=== PATIENT | male | born 1960 | race Two or more races ===

== ENCOUNTER 2020-02-02 11:44 | Inpatient (IN) | payer BC ==
[2020-02-02] VITALS (8 sets, daily range): BP systolic 98–131; BP diastolic 57–89
[~2020-02-02] VITALS: Ht 172.7 cm; Wt 76.7 kg
--- NOTE | 2020-02-02 11:55 | NUR ---
ED Nurse Note: Patient PATRICIA after calling 911. Patient suddenly felt very weak and diaphoretic at home out of nowhere, felt a pressure in his chest, and electricity in all of his extremities. Patient states he was waiting for the feeling to pass, but slowly felt worse and worse and passed out after vomiting in his bathroom at home. Patient currently unable to communicate in long sentences, looks extremely fatigued and pale. Patient had a non-sustained run of V-Tach on the monitoring analyst, which converted to A-Fib. Patient AxO x 2, laying in the gurney with eyes closed, diaphoretic. VSS. Blood and urine collected and sent to lab.
[2020-02-02 11:57] LABS: HEMATOCRIT 44.1 % (42.0-52.0); HEMOGLOBIN 15.7 G/DL (14.2-18.0); MEAN CORPUSCULAR VOLUME 91 FL (80-99); PLATELET COUNT 154 K/UL (150-450); RED BLOOD COUNT 4.85 M/UL (4.70-6.10); RED CELL DISTRIBUTION WIDTH 10.7 % (11.6-14.8); WHITE BLOOD COUNT 9.8 K/UL (4.8-10.8)
--- NOTE | 2020-02-02 12:23 | Emergency Room Report ---
History of Present Illness General Chief Complaint: Syncope Source: EMS Present Illness HPI Disclaimer: Please note that this report is being documented using DRAGON technology. This can lead to erroneous entry secondary to incorrect interpretation by the dictating instrument. HPI: This is a 60-year-old male presenting for syncope. Unknown medical history. EMS was called to the house for vomiting. They had to break into his home and found him on the ground though he was awake. He has been complaining of vomiting unknown duration. Patient is lethargic does not provide much significant information. EMS rhythm strips on arrival showed sinus rhythm. While he was being transferred and put on monitor in the ED room he had a 40 beat episode of nonsustained ventricular tachycardia. He was awake during this time. EKG after this event showed atrial fibrillation with diffuse ST depressions. PMH: Unknown PSH: Unknown Allergies: Unknown Social Hx: Unknown Allergies: Coded Allergies: No Known Allergies (Unverified , 02/02/20) COVID-19 Screening Contact w/high risk pt: No Recent Travel to affected area: No Experienced COVID-19 symptoms?: No COVID-19 symptoms experienced: Fever (T>100.4F or >38C) Review of Systems All Other Systems: negative except mentioned in HPI Physical Exam Vital Signs Date Time Temp Pulse Resp B/P (MAP) Pulse Ox O2 Delivery O2 Flow Rate FiO2 02/02/20 11:47 97.0 106 14 131/78 (95) 99 Room Air General: Lethargic HEENT: NC/AT. EOMI. Cardiovascular: Tachycardic, irregularly irregular rhythm Resp: Mild tachypnea. Normal work of breathing Abdomen: Abdomen is soft, nondistended. Nontender Skin: Intact. No abrasions, laceration or rash over the exposed skin MSK: Normal tone and bulk. Moving all extremities. No obvious deformity. Neuro: Lethargic. Responds to painful stimuli Procedures Critical Care Time Critical Care Time Total critical care time: Approximately 45 minutes Due to a high probability of clinically significant, life threatening deterioration, the patient required the highest level of preparedness to intervene emergently and I personally spent this critical care time directly and personally managing the patient. This critical care time included obtaining a history, examining the patient, pulse oximetry, ordering and reviewing studies , ordering treatments, evaluating response to treatment and updating management plan as needed, frequent reassessment and discussion with other providers as well as arranging for ultimate disposition. This critical to care time was performed to assess and manage the high probability of life-threatening deterioration that could result in multiorgan failure. This critical care time is separate from the separately billable procedures and treating other patients. Medical Decision Making Diagnostic Impression: Primary Impression: Syncope Additional Impressions: Ventricular tachycardia Prolonged Q-T interval on ECG ER Course This a 60-year-old male presenting for evaluation after syncopal episode. He was found on the ground by EMS and on arrival had a nonsustained ventricular tachycardic episode. He is lethargic but arousable. EKG shows atrial fibrillation with a left axis and diffuse ST depression concerning for inferior lateral ischemia. His QTC is significant prolonged at 567 ms. Patient has not been to our facility before however outside records from [facility] were obtained. 4 years ago he was taking digoxin, Coumadin and beta-blockers presumably for atrial fibrillation. Will send digoxin level, broad labs including blood cultures, lactate, coagulation markers. Discussed with cardiology will have the patient admitted to the ICU. No interventions recommended at this time. Defibrillator pads placed on patient. Will monitor closely. Laboratory Tests Test 02/02/20 11:47 02/02/20 12:00 White Blood Count 9.8 K/UL (4.8-10.8) Red Blood Count 4.85 M/UL (4.70-6.10) Hemoglobin 15.7 G/DL (14.2-18.0) Hematocrit 44.1 % (42.0-52.0) Mean Corpuscular Volume 91 FL (80-99) Mean Corpuscular Hemoglobin 32.5 PG (27.0-31.0) H Mean Corpuscular Hemoglobin Concent 35.7 G/DL (32.0-36.0) Red Cell Distribution Width 10.7 % (11.6-14.8) L Platelet Count 154 K/UL (150-450) Mean Platelet Volume 8.2 FL (6.5-10.1) Neutrophils (%) (Auto) % (45.0-75.0) Lymphocytes (%) (Auto) % (20.0-45.0) Monocytes (%) (Auto) % (1.0-10.0) Eosinophils (%) (Auto) % (0.0-3.0) Basophils (%) (Auto) % (0.0-2.0) Differential Total Cells Counted 100 Neutrophils % (Manual) 47 % (45-75) Lymphocytes % (Manual) 44 % (20-45) Monocytes % (Manual) 4 % (1-10) Eosinophils % (Manual) 3 % (0-3) Basophils % (Manual) 0 % (0-2) Band Neutrophils 2 % (0-8) Platelet Estimate Adequate Platelet Morphology Normal Red Blood Cell Morphology Normal Prothrombin Time 10.6 SEC (9.30-11.50) Prothrombin Time INR 1.0 (0.9-1.1) Activated Partial Thromboplast Time 23 SEC (23-33) Sodium Level 143 MMOL/L (136-145) Potassium Level 3.0 MMOL/L (3.5-5.1) L Chloride Level 103 MMOL/L (98-107) Carbon Dioxide Level 22 MMOL/L (21-32) Anion Gap 18 mmol/L (5-15) H Blood Urea Nitrogen 28 mg/dL (7-18) H Creatinine 1.1 MG/DL (0.55-1.30) Estimated Glomerular Filtration Rate > 60 mL/min (>60) Glucose Level 172 MG/DL (74-106) H Lactic Acid Level 4.90 mmol/L (0.4-2.0) H Calcium Level 9.3 MG/DL (8.5-10.1) Phosphorus Level 3.1 MG/DL (2.5-4.9) Magnesium Level 1.9 MG/DL (1.8-2.4) Total Bilirubin 0.7 MG/DL (0.2-1.0) Aspartate Amino Transferase (AST) 21 U/L (15-37) Alanine Aminotransferase (ALT) 28 U/L (12-78) Alkaline Phosphatase 71 U/L (46-116) Total Creatine Kinase 102 U/L (26-308) Troponin I 0.000 ng/mL (0.000-0.056) Pro-B-Type Natriuretic Peptide 92 pg/mL (0-125) Total Protein 7.3 G/DL (6.4-8.2) Albumin 4.1 G/DL (3.4-5.0) Globulin 3.2 g/dL Albumin/Globulin Ratio 1.3 (1.0-2.7) Lipase 108 U/L (73-393) Digoxin Level < 0.2 NG/ML (0.5-2.0) L Serum Alcohol < 3 mg/dL Urine Color Yellow Urine Appearance Clear Urine pH 5 (4.5-8.0) Urine Specific [place] 1.025 (1.005-1.035) Urine Protein 2+ (NEGATIVE) H Urine Glucose (UA) Negative (NEGATIVE) Urine Ketones 3+ (NEGATIVE) H Urine Blood Negative (NEGATIVE) Urine Nitrite Negative (NEGATIVE) Urine Bilirubin Negative (NEGATIVE) Urine Urobilinogen Normal MG/DL (0.0-1.0) Urine Leukocyte Esterase Negative (NEGATIVE) Urine RBC 0 /HPF (0 - 0) Urine WBC 0 /HPF (0 - 0) Urine Squamous Epithelial Cells None /LPF (NONE/OCC) Urine Amorphous Sediment Few /LPF (NONE) H Urine Bacteria None /HPF (NONE) Urine Opiates Screen Negative (NEGATIVE) Urine Barbiturates Screen Negative (NEGATIVE) Phencyclidine (PCP) Screen Negative (NEGATIVE) Urine Amphetamines Screen Negative (NEGATIVE) Urine Benzodiazepines Screen Negative (NEGATIVE) Urine Cocaine Screen Negative (NEGATIVE) Urine Marijuana (THC) Screen Negative (NEGATIVE) EKG Diagnostic Results EKG Time: 11:52 Rate: tachycardiac Rhythm: other - Atrial fibrillation Other Impression Atrial fibrillation, rapid rate, left axis, diffuse ST depression Rhythm Strip Diag. Results Rhythm Strip Time: 11:52 EP Interpretation: yes Rate: 110s Rhythm: other - Atrial fibrillation Chest X-Ray Diagnostic Results Chest X-Ray Diagnostic Results : Chest X-Ray Ordered: Yes # of Views/Limited/Complete: 1 View Indication: Other - Syncope EP Interpretation: Yes Interpretation: no consolidation, no effusion, no pneumothorax, no acute cardiopulmonary disease Impression: No acute disease Electronically Signed by: Electronically signed by Dr. Daniele Drake Reevaluation Time: 14:31 Last Vital Signs Date Time Temp Pulse Resp B/P (MAP) Pulse Ox O2 Delivery O2 Flow Rate FiO2 02/02/20 11:47 97.0 106 14 131/78 (95) 99 Room Air Reevaluation Impression Labs showed unremarkable CBC, slight hypokalemia with a potassium of 3.0. Slight anion gap and BUN elevation but normal creatinine at 1.1. Lactate elevated at 4.9. Troponin 0. Digoxin level undetectable and remainder of talk screen negative as well. No evidence of infection on urinalysis. Patient is now awake and alert. He states that he was suddenly severely fatigued, dizzy and then became drenched in sweat and had an episode of vomiting. Unsure whether or not he lost consciousness. He is now feeling much better and denies chest pain. He states he had an ablation for atrial fibrillation 2 years ago no longer takes medications. He has been feeling well up until today and denies any recent fever, chills, cough, chest pain, palpitations or other changes in his health. He remains on cardiac care nurse with defib pads applied. Will admit to the ICU for further care. Admitted to panel physician. Cardiology has evaluated patient and will continue to follow. Disposition: ADMITTED INPATIENT Condition: Serious Daniele Drake MD Feb 02, 2020 12:23
[2020-02-02 12:34] LABS: APPEARANCE,URINE CLEAR; BILIRUBIN, URINE NEGATIVE (NEGATIVE); GLUCOSE, URINE (UA) NEGATIVE (NEGATIVE); KETONES,URINE 3+ (NEGATIVE); LEUKOCYTE ESTERASE ,URINE NEGATIVE (NEGATIVE); NITRITE,URINE NEGATIVE (NEGATIVE); PH,URINE 5 (4.5-8.0); PROTEIN,URINE 2+ (NEGATIVE); UROBILINOGEN,URINE NORMAL MG/DL (0.0-1.0)
[2020-02-02 12:39] LABS: COLOR,URINE YELLOW
[2020-02-02 12:41] LABS: ANION GAP 18 mmol/L (5-15); BLOOD UREA NITROGEN 28 mg/dL (7-18); CALCIUM 9.3 MG/DL (8.5-10.1); CARBON DIOXIDE 22 MMOL/L (21-32); CHLORIDE 103 MMOL/L (98-107); CREATININE 1.1 MG/DL (0.55-1.30); SODIUM 143 MMOL/L (136-145)
[2020-02-02 12:45] LABS: ALANINE AMINOTRANSFERASE 28 U/L (12-78); ALBUMIN 4.1 G/DL (3.4-5.0); ALBUMIN/GLOBULIN RATIO 1.3 (1.0-2.7); ALKALINE PHOSPHATASE 71 U/L (46-116); ASPARTATE AMINO TRANSFERASE 21 U/L (15-37); BILIRUBIN,TOTAL 0.7 MG/DL (0.2-1.0)
--- NOTE | 2020-02-02 12:49 | NUR ---
ED Nurse Note: RYAN YEPEZ) -
[2020-02-02 13:14] LABS: CREATINE KINASE 102 U/L (26-308); PHOSPHORUS 3.1 MG/DL (2.5-4.9)
--- NOTE | 2020-02-02 13:51 | Diagnostic Imaging Report ---
Indication: Shortness of breath Technique: One view of the chest Comparison: none Findings: Lungs and pleural spaces are clear. Heart size is normal. Impression: No acute process
--- NOTE | 2020-02-02 15:50 | Diagnostic Imaging Report ---
Indication: Abdominal pain Technique: Supine view of the abdomen Comparison: None Findings: Unremarkable bowel gas pattern. No unusual masses or calcifications. Defibrillator paddles overlie the lower chest Impression: No acute process
--- NOTE | 2020-02-02 16:49 | NUR ---
ED Nurse Note: Patient resting in bed comfortably, AxO x 4, able to communicate without restriction and in full sentences. front desk monitor showing A-Fib between 118 and 130, patient denies shortness of breath and fatigue. Patient feeling much better.
--- NOTE | 2020-02-02 17:51 | Consultation ---
Consult Note Consult Note Asked to evaluate the patient at the request of Dr. Singh for fluid and electrolyte management Chief Complaint: Syncope HPI: This is a 60-year-old male presenting for syncope. Unknown medical history. EMS was called to the house for vomiting. They had to break into his home and found him on the ground though he was awake. He has been complaining of vomiting unknown duration. Patient is lethargic does not provide much significant information. EMS rhythm strips on arrival showed sinus rhythm. While he was being transferred and put on monitor in the ED room he had a 40 beat episode of nonsustained ventricular tachycardia. He was awake during this time. EKG after this event showed atrial fibrillation with diffuse ST depressions. PMH: Unknown PSH: Unknown Allergies: Unknown Social Hx: Unknown COVID-19 Screening Contact w/high risk pt: No Recent Travel to affected area: No Experienced COVID-19 symptoms?: No COVID-19 symptoms experienced: Fever (T>100.4F or >38C) Assessment/Plan Syncope Cardiac arrhythmia Dehydration Hypokalemia N.p.o. Potassium IV IV fluid Monitor electrolytes Per cardiology Helio Bryson MD Feb 02, 2020 17:51
--- NOTE | 2020-02-02 19:07 | NUR ---
ED Nurse Note: Report rendered by Candice Sin with com input from Kedar Sin. Patient is resting while on the phone and has no s/s of acute distress. Will contiue to monitor patient and receiving coordinator closely.
--- NOTE | 2020-02-02 19:27 | NUR ---
ED Nurse Note: First round of IV KCL hung post schedule. Will continue to monitor.
[2020-02-02] MEDS: D5 1/2NS w/KCl 40meq 1000ml 1,000 ML IV SCH (19:42)
--- NOTE | 2020-02-02 20:35 | NUR ---
ED Nurse Note: Patient resting comfortably, vital signs being closely monitored. Will continue to monitor for report and transport to the ICU floor. Receiving nurse to returnc all shortly for report.
--- NOTE | 2020-02-02 20:45 | NUR ---
ED Nurse Note: Report called in to Osvaldo JACOBO.
--- NOTE | 2020-02-02 21:07 | NUR ---
ED Nurse Note: Patient transported to floor by two RN's without incident.
--- NOTE | 2020-02-02 21:08 | NUR ---
NURSE NOTES: Admitted 60 year old male from Emergency Department. Endorsement received from DONNELL Ramírez. Patient awake and alert. Oriented x4. Sinus rhythm on the monitor. No complains of pain, no shortness of breath. With right forearm g18 and left forearm g20. Receiving D5 1/2NS with 40meq KCl at 50ml/hr. As per endorsement 1 bag of 3 bags of KCl 10 meq already given in ER. Will still need to give 2 more bags. Skin is intact. Orientation to room, call light, staff done. Bed locked and in low position. Bed alarm on. Call light within reach. Educated patient on how to use call light and to not to get up from the bed unassisted. Patient verbalized understanding.
--- NOTE | 2020-02-02 21:15 | NUR ---
NURSE NOTES: As per the patient, he did not fall. He felt dizzy so he laid on the floor and called 911.
--- NOTE | 2020-02-02 21:29 | Cardiac Electrophysiology PN ---
Subjective Subjective [id number] Objective Last 24 Hour Vital Signs Date Time Temp Pulse Resp B/P (MAP) Pulse Ox O2 Delivery O2 Flow Rate FiO2 02/02/20 21:08 97.1 68 15 114/58 100 Room Air 02/02/20 20:15 97.1 68 15 114/58 100 Room Air 02/02/20 19:30 97.1 71 13 103/62 100 Room Air 02/02/20 15:00 97.1 109 18 105/75 99 Room Air 02/02/20 13:00 97.2 107 18 112/69 98 Room Air 02/02/20 11:55 97.0 106 18 131/78 99 Room Air 02/02/20 11:47 97.0 106 14 131/78 (95) 99 Room Air Laboratory Tests Test 02/02/20 11:47 02/02/20 12:00 02/02/20 14:50 White Blood Count 9.8 K/UL (4.8-10.8) Red Blood Count 4.85 M/UL (4.70-6.10) Hemoglobin 15.7 G/DL (14.2-18.0) Hematocrit 44.1 % (42.0-52.0) Mean Corpuscular Volume 91 FL (80-99) Mean Corpuscular Hemoglobin 32.5 PG (27.0-31.0) H Mean Corpuscular Hemoglobin Concent 35.7 G/DL (32.0-36.0) Red Cell Distribution Width 10.7 % (11.6-14.8) L Platelet Count 154 K/UL (150-450) Mean Platelet Volume 8.2 FL (6.5-10.1) Neutrophils (%) (Auto) % (45.0-75.0) Lymphocytes (%) (Auto) % (20.0-45.0) Monocytes (%) (Auto) % (1.0-10.0) Eosinophils (%) (Auto) % (0.0-3.0) Basophils (%) (Auto) % (0.0-2.0) Differential Total Cells Counted 100 Neutrophils % (Manual) 47 % (45-75) Lymphocytes % (Manual) 44 % (20-45) Monocytes % (Manual) 4 % (1-10) Eosinophils % (Manual) 3 % (0-3) Basophils % (Manual) 0 % (0-2) Band Neutrophils 2 % (0-8) Platelet Estimate Adequate Platelet Morphology Normal Red Blood Cell Morphology Normal Prothrombin Time 10.6 SEC (9.30-11.50) Prothromb Time International Ratio 1.0 (0.9-1.1) Activated Partial Thromboplast Time 23 SEC (23-33) Sodium Level 143 MMOL/L (136-145) Potassium Level 3.0 MMOL/L (3.5-5.1) L Chloride Level 103 MMOL/L (98-107) Carbon Dioxide Level 22 MMOL/L (21-32) Anion Gap 18 mmol/L (5-15) H Blood Urea Nitrogen 28 mg/dL (7-18) H Creatinine 1.1 MG/DL (0.55-1.30) Estimat Glomerular Filtration Rate > 60 mL/min (>60) Glucose Level 172 MG/DL (74-106) H Lactic Acid Level 4.90 mmol/L (0.4-2.0) H 4.40 mmol/L (0.66-2.22) H Calcium Level 9.3 MG/DL (8.5-10.1) Phosphorus Level 3.1 MG/DL (2.5-4.9) Magnesium Level 1.9 MG/DL (1.8-2.4) Total Bilirubin 0.7 MG/DL (0.2-1.0) Aspartate Amino Transf (AST/SGOT) 21 U/L (15-37) Alanine Aminotransferase (ALT/SGPT) 28 U/L (12-78) Alkaline Phosphatase 71 U/L (46-116) Total Creatine Kinase 102 U/L (26-308) Troponin I 0.000 ng/mL (0.000-0.056) Pro-B-Type Natriuretic Peptide 92 pg/mL (0-125) Total Protein 7.3 G/DL (6.4-8.2) Albumin 4.1 G/DL (3.4-5.0) Globulin 3.2 g/dL Albumin/Globulin Ratio 1.3 (1.0-2.7) Lipase 108 U/L (73-393) Digoxin Level < 0.2 NG/ML (0.5-2.0) L Serum Alcohol < 3 mg/dL Urine Color Yellow Urine Appearance Clear Urine pH 5 (4.5-8.0) Urine Specific [place] 1.025 (1.005-1.035) Urine Protein 2+ (NEGATIVE) H Urine Glucose (UA) Negative (NEGATIVE) Urine Ketones 3+ (NEGATIVE) H Urine Blood Negative (NEGATIVE) Urine Nitrite Negative (NEGATIVE) Urine Bilirubin Negative (NEGATIVE) Urine Urobilinogen Normal MG/DL (0.0-1.0) Urine Leukocyte Esterase Negative (NEGATIVE) Urine RBC 0 /HPF (0 - 0) Urine WBC 0 /HPF (0 - 0) Urine Squamous Epithelial Cells None /LPF (NONE/OCC) Urine Amorphous Sediment Few /LPF (NONE) H Urine Bacteria None /HPF (NONE) Urine Opiates Screen Negative (NEGATIVE) Urine Barbiturates Screen Negative (NEGATIVE) Phencyclidine (PCP) Screen Negative (NEGATIVE) Urine Amphetamines Screen Negative (NEGATIVE) Urine Benzodiazepines Screen Negative (NEGATIVE) Urine Cocaine Screen Negative (NEGATIVE) Urine Marijuana (THC) Screen Negative (NEGATIVE) Microbiology Date/Time Source Procedure Growth Status 02/02/20 18:00 Rectum Received Ry Melendez MD Feb 02, 2020 21:29
--- NOTE | 2020-02-02 21:30 | NUR ---
NURSE NOTES: Dr. Bryson already has put in orders. Received a call from Dr. Melendez, updated him of patient's current status. As per him he already talked to the patient and patient can not leave unless he signs AMA. put in orders for the patient, clarified with Dr. Melendez that he wants Troponin done one now then Q8 x2, total of 3.
--- NOTE | 2020-02-02 22:00 | NUR ---
NURSE NOTES: Called Dr. Sweeney on his emergency line to update him that patient already admitted and current status. Informed him that the undersigned already received orders from Drs. Bryson and Al. Left a message
[2020-02-02] MEDS: Pantoprazole Inj IVP SCH (22:20)
[2020-02-03] VITALS (20 sets, daily range): BP systolic 74–126; BP diastolic 37–76
--- NOTE | 2020-02-03 00:15 | NUR ---
NURSE NOTES: Patient reported to having pain on the IV site where the KCl 10meq 100ml bag is infusing. Currently infusing KCl bag 3 of 3. IV site is intact, no redness. Tried to infuse to the left forearm IV, patient still complained of pain even if it was Yed to the main IV fluid. Patient refused to finish the IV at this time. Explained the risks and benefits to the patient still refusing. As per him he will take full responsibility for any consequences for not finishing the KCL. About 50ml still left in the bag. KCl stopped at this time.
--- NOTE | 2020-02-03 01:00 | Consultation ---
DATE OF CONSULTATION: 02/02/2020 CARDIOLOGY CONSULTATION CONSULTING PHYSICIAN: Ry Melendez MD. REFERRING PHYSICIAN: Claribel Sweeney MD. REASON FOR CONSULTATION: Syncope and long runs of 40 beats of ventricular tachycardia. HISTORY OF PRESENT ILLNESS: The patient is a 60-year-old gentleman with history of hypertension, atrial fibrillation, had a history of ablation in the past, also presented to the emergency room after he had the syncopal episodes. The paramedics were called to the house. The patient was vomiting and they had to break in home and found him on the ground. He was awake. The patient was lethargic. When I saw in the emergency room, the patient was having multiple runs of ventricular tachycardia, rate up to 40 beats in a row. The initial rhythm strip shows sinus rhythm by paramedics, however, in the emergency room, the patient was in atrial fibrillation. His EKG also showed diffuse ST depression in inferolateral leads. At the time of my evaluation in the ER, the patient was not quite responsive. No information was available. Review of the patient's [facility] records noted that the patient 4-1/2 years ago was taking propafenone, digoxin, and Coumadin. REVIEW OF SYSTEMS: Cannot be obtained. PAST MEDICAL HISTORY: As mentioned above. FAMILY HISTORY: Noncontributory. SOCIAL HISTORY: He lives at home. Does not smoke or drink alcohol. PHYSICAL EXAMINATION: VITAL SIGNS: Blood pressure 131/78, pulse 106, respirations 18, and temperature 97. HEAD AND NECK: Shows no JVD. LUNGS: Coarse rhonchi. CARDIOVASCULAR: Irregular S1 and S2 with no gallop or murmur. ABDOMEN: Soft. EXTREMITIES: No pitting edema. LABORATORY AND DIAGNOSTIC DATA: His labs show white count of 9.8, hemoglobin of 15.2, hematocrit of 44, and platelet count was 154. His sodium is 142, potassium 3.0, BUN of 28, creatinine 1.1. Magnesium is 1.9. Troponin is negative. BNP is 92. ASSESSMENT AND PLAN: 1. Atrial fibrillation with rapid ventricular response. Digoxin level is less than 0.5. Start the patient on Lopressor 25 mg b.i.d. but if he continues to have runs of ventricular tachycardia, I am going to start him on amiodarone. The patient will be ruled out for myocardial infarction. The patient will need anticoagulation at this point. The patient reported he has history of atrial fibrillation and ablation, the details of which are not clear. 2. Long runs of nonsustained ventricular tachycardia at 40 beats. The patient likely would need cardiac catheterization for further evaluation of his coronaries. We will review with the patient the nature of medications that he is taking as he also has long QT. 3. Status post syncope, likely due to ventricular tachycardia. Neurology evaluation is pending. 4. The patient's urine toxicology screen was negative. 5. History of hypertension. We will completely rule out MA protocol. Thank you very much, Dr. Sweeney, for allowing me to participate in the care of this patient. Please do not hesitate to contact me for any questions regarding my evaluation. Discussed the case with the emergency room physician and reviewed the patient's prior records at [facility]. Ry Melendez M.D. DR: Annalisa JOB#: [id number] CC:
--- NOTE | 2020-02-03 01:54 | NUR ---
NURSE NOTES: Patient's BP is 73/39. Rechecked on the other arm, SBP still low. Patient is awake and alert at this time. Called Dr. Melendez on his emergency exchange. Left a message, awaiting for return call.
--- NOTE | 2020-02-03 03:00 | NUR ---
NURSE NOTES: Current BP 82/46. As per patient, he does not feel dizzy or lethargic. Called Dr. Melendez again on his emergency exchange. Left a message, awaiting for return call.
--- NOTE | 2020-02-03 05:00 | NUR ---
NURSE NOTES: 12 L ECG done. Shows sinus rhythm. SBP 89mmHg. Patient awake, asymptomatic. As per him his BP normally is in the 90s.
--- NOTE | 2020-02-03 06:20 | NUR ---
NURSE NOTES: Patient seen and examined by Dr. Mills. Updated him of patient's status overnight. No new orders received at this time.
--- NOTE | 2020-02-03 07:22 | NUR ---
HAND-OFF: SBP now 98mmHg. Report given to Susan shetty RN
[2020-02-03 07:32] LABS: BASOPHILS % (AUTO) 0.6 % (0.0-2.0); EOSINOPHILS % (AUTO) 1.5 % (0.0-3.0); HEMATOCRIT 37.8 % (42.0-52.0); HEMOGLOBIN 13.8 G/DL (14.2-18.0); LYMPHOCYTES % (AUTO) 19.9 % (20.0-45.0); MEAN CORPUSCULAR VOLUME 91 FL (80-99); MONOCYTES % (AUTO) 6.6 % (1.0-10.0); NEUTROPHILS % (AUTO) 71.3 % (45.0-75.0); PLATELET COUNT 121 K/UL (150-450); RED BLOOD COUNT 4.16 M/UL (4.70-6.10); RED CELL DISTRIBUTION WIDTH 10.8 % (11.6-14.8); WHITE BLOOD COUNT 9.1 K/UL (4.8-10.8)
[2020-02-03 08:01] LABS: ALANINE AMINOTRANSFERASE 28 U/L (12-78); ALBUMIN 3.4 G/DL (3.4-5.0); ALBUMIN/GLOBULIN RATIO 1.1 (1.0-2.7); ALKALINE PHOSPHATASE 60 U/L (46-116); ANION GAP 12 mmol/L (5-15); ASPARTATE AMINO TRANSFERASE 19 U/L (15-37); BILIRUBIN,TOTAL 0.5 MG/DL (0.2-1.0); BLOOD UREA NITROGEN 20 mg/dL (7-18); CARBON DIOXIDE 24 MMOL/L (21-32); CHLORIDE 108 MMOL/L (98-107); CHOLESTEROL 147 MG/DL (< 200); CREATININE 0.9 MG/DL (0.55-1.30); HDL CHOLESTEROL 56 MG/DL (40-60); PHOSPHORUS 3.5 MG/DL (2.5-4.9); POTASSIUM 3.9 MMOL/L (3.5-5.1); SODIUM 144 MMOL/L (136-145); TRIGLYCERIDES 41 MG/DL (30-150)
[2020-02-03] MEDS: Pantoprazole Inj IVP SCH (08:16)
--- NOTE | 2020-02-03 08:42 | NUR ---
NURSE NOTES: 2Decho is being done at bedside.
--- NOTE | 2020-02-03 09:06 | Nephrology Progress Note ---
Assessment/Plan Problem List: (1) Electrolyte imbalance Assessment: Hypokalemia (2) Syncope (3) Ventricular tachycardia Assessment Syncope Cardiac arrhythmia Dehydration Hypokalemia Plan Potassium supplements IV fluid Monitor electrolytes Per cardiology Subjective ROS Limited/Unobtainable: No Constitutional: Reports: malaise Objective Objective Last 24 Hour Vital Signs Date Time Temp Pulse Resp B/P (MAP) Pulse Ox O2 Delivery O2 Flow Rate FiO2 02/03/20 07:00 61 13 98/74 99 Room Air 02/03/20 06:00 58 13 74/44 97 Room Air 02/03/20 05:00 60 15 87/60 97 Room Air 02/03/20 04:00 58 02/03/20 04:00 Room Air 02/03/20 04:00 97.8 61 16 75/43 98 Room Air 02/03/20 03:00 61 14 82/46 99 Room Air 02/03/20 02:00 64 15 81/41 100 Room Air 02/03/20 00:00 97.9 65 17 126/76 100 Room Air 02/03/20 00:00 Room Air 02/03/20 00:00 68 02/02/20 23:00 67 17 98/57 100 Room Air 02/02/20 22:53 Room Air 02/02/20 22:00 62 14 114/89 96 Room Air 02/02/20 21:09 97.8 71 13 113/78 100 Room Air 02/02/20 21:08 97.1 68 15 114/58 100 Room Air 02/02/20 21:00 69 02/02/20 20:15 97.1 68 15 114/58 100 Room Air 02/02/20 19:30 97.1 71 13 103/62 100 Room Air 02/02/20 15:00 97.1 109 18 105/75 99 Room Air 02/02/20 13:00 97.2 107 18 112/69 98 Room Air 02/02/20 11:55 97.0 106 18 131/78 99 Room Air 02/02/20 11:47 97.0 106 14 131/78 (95) 99 Room Air Intake and Output 02/02/20 02/03/20 19:00 07:00 Intake Total 750 ml Output Total 30 ml 800 ml Balance -30 ml -50 ml Intake Oral 200 ml IV Total 550 ml Output Urine Total 30 ml 800 ml # Voids 1 Laboratory Tests 02/02/20 11:47: White Blood Count 9.8, Red Blood Count 4.85, Hemoglobin 15.7, Hematocrit 44.1, Mean Corpuscular Volume 91, Mean Corpuscular Hemoglobin 32.5H, Mean Corpuscular Hemoglobin Concent 35.7, Red Cell Distribution Width 10.7L, Platelet Count 154, Mean Platelet Volume 8.2, Neutrophils (%) (Auto) , Lymphocytes (%) (Auto) , Monocytes (%) (Auto) , Eosinophils (%) (Auto) , Basophils (%) (Auto) , Differential Total Cells Counted 100, Neutrophils % (Manual) 47, Lymphocytes % ( Manual) 44, Monocytes % (Manual) 4, Eosinophils % (Manual) 3, Basophils % ( Manual) 0, Band Neutrophils 2, Platelet Estimate Adequate, Platelet Morphology Normal, Red Blood Cell Morphology Normal, Prothrombin Time 10.6, Prothromb Time International Ratio 1.0, Activated Partial Thromboplast Time 23, Sodium Level 143, Potassium Level 3.0L, Chloride Level 103, Carbon Dioxide Level 22, Anion Gap 18H, Blood Urea Nitrogen 28H, Creatinine 1.1, Estimat Glomerular Filtration Rate > 60, Glucose Level 172H, Lactic Acid Level 4.90H, Calcium Level 9.3, Phosphorus Level 3.1, Magnesium Level 1.9, Total Bilirubin 0.7, Aspartate Amino Transf (AST/SGOT) 21, Alanine Aminotransferase (ALT/SGPT) 28, Alkaline Phosphatase 71, Total Creatine Kinase 102, Troponin I 0.000, Pro-B-Type Natriuretic Peptide 92, Total Protein 7.3, Albumin 4.1, Globulin 3.2, Albumin/ Globulin Ratio 1.3, Lipase 108, Digoxin Level < 0.2L, Serum Alcohol < 3 02/02/20 12:00: Urine Color Yellow, Urine Appearance Clear, Urine pH 5, Urine Specific [place] 1.025, Urine Protein 2+H, Urine Glucose (UA) Negative, Urine Ketones 3+H, Urine Blood Negative, Urine Nitrite Negative, Urine Bilirubin Negative, Urine Urobilinogen Normal, Urine Leukocyte Esterase Negative, Urine RBC 0, Urine WBC 0 , Urine Squamous Epithelial Cells None, Urine Amorphous Sediment FewH, Urine Bacteria None, Urine Opiates Screen Negative, Urine Barbiturates Screen Negative , Phencyclidine (PCP) Screen Negative, Urine Amphetamines Screen Negative, Urine Benzodiazepines Screen Negative, Urine Cocaine Screen Negative, Urine Marijuana (THC) Screen Negative 02/02/20 14:50: Lactic Acid Level 4.40H 02/02/20 22:40: Troponin I 0.005, D-Dimer 0.30 02/03/20 01:15: Lactic Acid Level 1.40 02/03/20 05:57: Lactic Acid Level 0.80, White Blood Count 9.1, Red Blood Count 4.16L, Hemoglobin 13.8L, Hematocrit 37.8L, Mean Corpuscular Volume 91, Mean Corpuscular Hemoglobin 33.0H, Mean Corpuscular Hemoglobin Concent 36.4H, Red Cell Distribution Width 10.8L, Platelet Count 121L, Mean Platelet Volume 9.0, Neutrophils (%) (Auto) 71.3, Lymphocytes (%) (Auto) 19.9L, Monocytes (%) (Auto) 6.6, Eosinophils (%) (Auto) 1.5, Basophils (%) (Auto) 0.6, Sodium Level 144, Potassium Level 3.9, Chloride Level 108H, Carbon Dioxide Level 24, Anion Gap 12 , Blood Urea Nitrogen 20H, Creatinine 0.9, Estimat Glomerular Filtration Rate > 60, Glucose Level 93, Hemoglobin A1c 5.5, Uric Acid 4.2, Calcium Level 9.0, Phosphorus Level 3.5, Magnesium Level 1.8, Total Bilirubin 0.5, Aspartate Amino Transf (AST/SGOT) 19, Alanine Aminotransferase (ALT/SGPT) 28, Alkaline Phosphatase 60, Troponin I 0.005, C-Reactive Protein, Quantitative < 0.4, Pro-B- Type Natriuretic Peptide 868H, Total Protein 6.5, Albumin 3.4, Globulin 3.1, Albumin/Globulin Ratio 1.1, Triglycerides Level 41, Cholesterol Level 147, LDL Cholesterol 77, HDL Cholesterol 56, Cholesterol/HDL Ratio 2.6L, Thyroid Stimulating Hormone (TSH) 1.367, Free Thyroxine 1.04 Height (Feet): 5 Height (Inches): 8.00 Weight (Pounds): 169 General Appearance: no apparent distress Cardiovascular: bradycardia Respiratory/Chest: decreased breath sounds Abdomen: soft Helio Bryson MD Feb 03, 2020 09:06
--- NOTE | 2020-02-03 09:33 | NUR ---
ASSISTANT TO THE DIRECTOR NOTE Pt has admitted to ICU on 02/02/2020. Pt presents as A&O4x. Pt resides alone at [address] [place] [address], [place] [address]. Pt is single, never and has no children. Pt provided emergency contact: Gallito High (friend) [phone]. Pt does not have any family in contact. Pt is ambulatory and independent w/ ADLs. Pt wears glasses. Pt does not share any social concerns/needs. Pt report he is feeling much better and hoping to discharge soon. SW to F/U as needed.
--- NOTE | 2020-02-03 09:40 | NUR ---
*-* INSURANCE *-* ALL AVAILABLE CLINICALS HAVE BEEN FAXED TO: [facility] REF# [id number] P: [phone] OPT.6 F: [phone] *-* RECEIVED FAX AUTHORIZATION FOR 02/02/20 LOC-ICE FAXED TO ADMITTING
--- NOTE | 2020-02-03 09:55 | NUR ---
CASE MANAGEMENT: REVIEW 60 YEAR OLD MALE BIBA FROM HOME CC: SYNCOPE . VOMITING . DEHYDRATION SI: A-FIB w/RVR . NONSUSTAINED VENTRICULAR TACHYCARDIA T 97.0 HR 109 RR 15 BP 114/58 SAT 98% ROOM AIR DIGOXIN LEVEL <0.2 BNP 868 EKG -- ST DEPRESSIONS . PROLONGED Q-T INTERVAL CXR -- NO ACUTE CARDIOPULMONARY DISEASE IS: AMIODARONE 100ML IV X1 NS IVF BOLUS X1 KCl 10MEQ X1 PROTONIX 40MG IV X1 PATIENT ADMITTED TO ICU 02/02/2020 DCP: PATIENT IS FROM HOME
--- NOTE | 2020-02-03 10:00 | NUR ---
NURSE NOTES: Pt is eating breakfast in bed. Pt stated that he wants to leave AMA but will wait for 2Decho result and Dr Melendze to talk about plan of care. Urinal at bedside.
--- NOTE | 2020-02-03 10:04 | Diagnostic Imaging Report ---
Indication:Leg pain and swelling Technique: Grayscale and duplex Doppler imaging of the veins in both lower extremities performed in real time utilizing compression and augmentation. Comparison: None Findings: Duplex Doppler interrogation of the veins in both lower extremity is performed from the common femoral vein to the popliteal vein. Normal venous compressibility demonstrated throughout. No thrombus identified. Waveform analysis shows good respiratory phasicity and augmentation. IMPRESSION: No evidence of deep venous thrombosis involving the visualized veins of the bilateral lower extremities.
[2020-02-03] MEDS: Docusate 100mg cap ORAL SCH ×2 (13:00→18:00)
--- NOTE | 2020-02-03 13:00 | NUR ---
NURSE NOTES: Afebrile. BP 90's. No CP. Sinus rhythm on classroom monitor. Pt denies pain or discomfort.Pt is eating lunch in bed. Will continue to monitor.
--- NOTE | 2020-02-03 13:11 | Cardiac Electrophysiology PN ---
Assessment/Plan Assessment/Plan 1. Atrial fibrillation with rapid ventricular response. Digoxin level is less than 0.5. Converted to SR on Lopressor 25 mg b.i.d. The patient will need anticoagulation at this point. The patient reported he has history of atrial fibrillation and Atrial fib ablation at [facility] by Dr Ling. 2. Long runs of nonsustained ventricular tachycardia at 40 beats. The patient likely would need cardiac catheterization and EP study for further evaluation of his coronaries and inducibility of VT. Ruled out for ID. ECho Nl EF. 3. Status post syncope, likely due to ventricular tachycardia. Neurology evaluation is pending.The patient's urine toxicology screen was negative. Subjective Subjective In ICU converted to SR. ECho EF 60% Objective Last 24 Hour Vital Signs Date Time Temp Pulse Resp B/P (MAP) Pulse Ox O2 Delivery O2 Flow Rate FiO2 02/03/20 12:00 Room Air 02/03/20 12:00 61 18 97/65 100 Room Air 02/03/20 11:00 60 19 92/57 99 Room Air 02/03/20 10:00 57 13 86/57 100 Room Air 02/03/20 09:00 59 14 78/49 98 Room Air 02/03/20 08:02 98.2 58 13 75/37 99 Room Air 02/03/20 08:00 Room Air 02/03/20 07:00 61 13 98/74 99 Room Air 02/03/20 06:00 58 13 74/44 97 Room Air 02/03/20 05:00 60 15 87/60 97 Room Air 02/03/20 04:00 58 02/03/20 04:00 Room Air 02/03/20 04:00 97.8 61 16 75/43 98 Room Air 02/03/20 03:00 61 14 82/46 99 Room Air 02/03/20 02:00 64 15 81/41 100 Room Air 02/03/20 00:00 97.9 65 17 126/76 100 Room Air 02/03/20 00:00 Room Air 02/03/20 00:00 68 02/02/20 23:00 67 17 98/57 100 Room Air 02/02/20 22:53 Room Air 02/02/20 22:00 62 14 114/89 96 Room Air 02/02/20 21:09 97.8 71 13 113/78 100 Room Air 02/02/20 21:08 97.1 68 15 114/58 100 Room Air 02/02/20 21:00 69 02/02/20 20:15 97.1 68 15 114/58 100 Room Air 02/02/20 19:30 97.1 71 13 103/62 100 Room Air 02/02/20 15:00 97.1 109 18 105/75 99 Room Air 02/02/20 13:00 97.2 107 18 112/69 98 Room Air Intake and Output 02/02/20 02/03/20 19:00 07:00 Intake Total 750 ml Output Total 30 ml 800 ml Balance -30 ml -50 ml Intake Oral 200 ml IV Total 550 ml Output Urine Total 30 ml 800 ml # Voids 1 Laboratory Tests Test 02/02/20 14:50 02/02/20 22:40 02/03/20 01:15 02/03/20 05:57 Lactic Acid Level 4.40 mmol/L (0.66-2.22) H 1.40 mmol/L (0.4-2.0) 0.80 mmol/L (0.4-2.0) D-Dimer 0.30 mg/L FEU (0.00-0.49) Troponin I 0.005 ng/mL (0.000-0.056) 0.005 ng/mL (0.000-0.056) White Blood Count 9.1 K/UL (4.8-10.8) Red Blood Count 4.16 M/UL (4.70-6.10) L Hemoglobin 13.8 G/DL (14.2-18.0) L Hematocrit 37.8 % (42.0-52.0) L Mean Corpuscular Volume 91 FL (80-99) Mean Corpuscular Hemoglobin 33.0 PG (27.0-31.0) H Mean Corpuscular Hemoglobin Concent 36.4 G/DL (32.0-36.0) H Red Cell Distribution Width 10.8 % (11.6-14.8) L Platelet Count 121 K/UL (150-450) L Mean Platelet Volume 9.0 FL (6.5-10.1) Neutrophils (%) (Auto) 71.3 % (45.0-75.0) Lymphocytes (%) (Auto) 19.9 % (20.0-45.0) L Monocytes (%) (Auto) 6.6 % (1.0-10.0) Eosinophils (%) (Auto) 1.5 % (0.0-3.0) Basophils (%) (Auto) 0.6 % (0.0-2.0) Sodium Level 144 MMOL/L (136-145) Potassium Level 3.9 MMOL/L (3.5-5.1) Chloride Level 108 MMOL/L (98-107) H Carbon Dioxide Level 24 MMOL/L (21-32) Anion Gap 12 mmol/L (5-15) Blood Urea Nitrogen 20 mg/dL (7-18) H Creatinine 0.9 MG/DL (0.55-1.30) Estimat Glomerular Filtration Rate > 60 mL/min (>60) Glucose Level 93 MG/DL (74-106) Hemoglobin A1c 5.5 % (4.3-6.0) Uric Acid 4.2 MG/DL (2.6-7.2) Calcium Level 9.0 MG/DL (8.5-10.1) Phosphorus Level 3.5 MG/DL (2.5-4.9) Magnesium Level 1.8 MG/DL (1.8-2.4) Total Bilirubin 0.5 MG/DL (0.2-1.0) Aspartate Amino Transf (AST/SGOT) 19 U/L (15-37) Alanine Aminotransferase (ALT/SGPT) 28 U/L (12-78) Alkaline Phosphatase 60 U/L (46-116) C-Reactive Protein, Quantitative < 0.4 mg/dL (0.00-0.90) Pro-B-Type Natriuretic Peptide 868 pg/mL (0-125) H Total Protein 6.5 G/DL (6.4-8.2) Albumin 3.4 G/DL (3.4-5.0) Globulin 3.1 g/dL Albumin/Globulin Ratio 1.1 (1.0-2.7) Triglycerides Level 41 MG/DL (30-150) Cholesterol Level 147 MG/DL (< 200) LDL Cholesterol 77 mg/dL (<100) HDL Cholesterol 56 MG/DL (40-60) Cholesterol/HDL Ratio 2.6 (3.3-4.4) L Thyroid Stimulating Hormone (TSH) 1.367 uiU/mL (0.358-3.740) Free Thyroxine 1.04 NG/DL (0.76-1.46) Microbiology Date/Time Source Procedure Growth Status 02/02/20 18:00 Rectum Received Objective HEAD AND NECK: No JVD. LUNGS: Coarse rhonchi. CARDIOVASCULAR:Regular S1 and S2 with no gallop or murmur. ABDOMEN: Soft. EXTREMITIES: No pitting edema. Ry Melendez MD Feb 03, 2020 13:10
--- NOTE | 2020-02-03 13:34 | NUR ---
NURSE NOTES: Dr Melendez here to see the patient. Notified him with pt's current condition, including low BP and SR-SB. He spoke with the patient at bedside. Patient will go to transfer center in [facility] for cardiac cath according to Dr Melendez. Faxed face sheet to transfer center for financial clearance.
--- NOTE | 2020-02-03 14:13 | Consultation ---
History of Present Illness General Chief Complaint: Syncope Present Illness Allergies: Coded Allergies: No Known Allergies (Unverified , 02/02/20) Medication History No Active Prescriptions or Reported Meds Patient History Healthcare decision maker Resuscitation status Full Code Advanced Directive on File Physical Exam Last 24 Hour Vital Signs Date Time Temp Pulse Resp B/P (MAP) Pulse Ox O2 Delivery O2 Flow Rate FiO2 02/03/20 12:00 Room Air 02/03/20 12:00 61 18 97/65 100 Room Air 02/03/20 11:00 60 19 92/57 99 Room Air 02/03/20 10:00 57 13 86/57 100 Room Air 02/03/20 09:00 59 14 78/49 98 Room Air 02/03/20 08:02 98.2 58 13 75/37 99 Room Air 02/03/20 08:00 Room Air 02/03/20 07:00 61 13 98/74 99 Room Air 02/03/20 06:00 58 13 74/44 97 Room Air 02/03/20 05:00 60 15 87/60 97 Room Air 02/03/20 04:00 58 02/03/20 04:00 Room Air 02/03/20 04:00 97.8 61 16 75/43 98 Room Air 02/03/20 03:00 61 14 82/46 99 Room Air 02/03/20 02:00 64 15 81/41 100 Room Air 02/03/20 00:00 97.9 65 17 126/76 100 Room Air 02/03/20 00:00 Room Air 02/03/20 00:00 68 02/02/20 23:00 67 17 98/57 100 Room Air 02/02/20 22:53 Room Air 02/02/20 22:00 62 14 114/89 96 Room Air 02/02/20 21:09 97.8 71 13 113/78 100 Room Air 02/02/20 21:08 97.1 68 15 114/58 100 Room Air 02/02/20 21:00 69 02/02/20 20:15 97.1 68 15 114/58 100 Room Air 02/02/20 19:30 97.1 71 13 103/62 100 Room Air 02/02/20 15:00 97.1 109 18 105/75 99 Room Air Intake and Output 02/02/20 02/03/20 19:00 07:00 Intake Total 750 ml Output Total 30 ml 800 ml Balance -30 ml -50 ml Intake Oral 200 ml IV Total 550 ml Output Urine Total 30 ml 800 ml # Voids 1 Laboratory Tests Test 02/02/20 14:50 02/02/20 22:40 02/03/20 01:15 02/03/20 05:57 Lactic Acid Level 4.40 mmol/L (0.66-2.22) H 1.40 mmol/L (0.4-2.0) 0.80 mmol/L (0.4-2.0) D-Dimer 0.30 mg/L FEU (0.00-0.49) Troponin I 0.005 ng/mL (0.000-0.056) 0.005 ng/mL (0.000-0.056) White Blood Count 9.1 K/UL (4.8-10.8) Red Blood Count 4.16 M/UL (4.70-6.10) L Hemoglobin 13.8 G/DL (14.2-18.0) L Hematocrit 37.8 % (42.0-52.0) L Mean Corpuscular Volume 91 FL (80-99) Mean Corpuscular Hemoglobin 33.0 PG (27.0-31.0) H Mean Corpuscular Hemoglobin Concent 36.4 G/DL (32.0-36.0) H Red Cell Distribution Width 10.8 % (11.6-14.8) L Platelet Count 121 K/UL (150-450) L Mean Platelet Volume 9.0 FL (6.5-10.1) Neutrophils (%) (Auto) 71.3 % (45.0-75.0) Lymphocytes (%) (Auto) 19.9 % (20.0-45.0) L Monocytes (%) (Auto) 6.6 % (1.0-10.0) Eosinophils (%) (Auto) 1.5 % (0.0-3.0) Basophils (%) (Auto) 0.6 % (0.0-2.0) Sodium Level 144 MMOL/L (136-145) Potassium Level 3.9 MMOL/L (3.5-5.1) Chloride Level 108 MMOL/L (98-107) H Carbon Dioxide Level 24 MMOL/L (21-32) Anion Gap 12 mmol/L (5-15) Blood Urea Nitrogen 20 mg/dL (7-18) H Creatinine 0.9 MG/DL (0.55-1.30) Estimat Glomerular Filtration Rate > 60 mL/min (>60) Glucose Level 93 MG/DL (74-106) Hemoglobin A1c 5.5 % (4.3-6.0) Uric Acid 4.2 MG/DL (2.6-7.2) Calcium Level 9.0 MG/DL (8.5-10.1) Phosphorus Level 3.5 MG/DL (2.5-4.9) Magnesium Level 1.8 MG/DL (1.8-2.4) Total Bilirubin 0.5 MG/DL (0.2-1.0) Aspartate Amino Transf (AST/SGOT) 19 U/L (15-37) Alanine Aminotransferase (ALT/SGPT) 28 U/L (12-78) Alkaline Phosphatase 60 U/L (46-116) C-Reactive Protein, Quantitative < 0.4 mg/dL (0.00-0.90) Pro-B-Type Natriuretic Peptide 868 pg/mL (0-125) H Total Protein 6.5 G/DL (6.4-8.2) Albumin 3.4 G/DL (3.4-5.0) Globulin 3.1 g/dL Albumin/Globulin Ratio 1.1 (1.0-2.7) Triglycerides Level 41 MG/DL (30-150) Cholesterol Level 147 MG/DL (< 200) LDL Cholesterol 77 mg/dL (<100) HDL Cholesterol 56 MG/DL (40-60) Cholesterol/HDL Ratio 2.6 (3.3-4.4) L Thyroid Stimulating Hormone (TSH) 1.367 uiU/mL (0.358-3.740) Free Thyroxine 1.04 NG/DL (0.76-1.46) Microbiology Date/Time Source Procedure Growth Status 02/02/20 18:00 Rectum Received Height (Feet): 5 Height (Inches): 8.00 Weight (Pounds): 169 Medications Current Medications Medications (Trade) Dose Ordered Sig/Rene Route PRN Reason Start Time Stop Time Status Last Admin Dose Admin Dextrose/ Electrolytes 1,000 ml @ 50 mls/hr Q20H IV 02/02/20 19:00 03/03/20 18:59 02/02/20 19:42 Docusate Sodium (Colace) 100 mg THREE TIMES A DAY ORAL 02/03/20 13:00 03/04/20 12:59 Metoprolol Tartrate (Lopressor) 25 mg EVERY 12 HOURS ORAL 02/03/20 09:00 05/03/20 08:59 Pantoprazole (Protonix) 40 mg EVERY 12 HOURS ORAL 02/03/20 21:00 03/04/20 20:59 Assessment/Plan Assessment/Plan: Hematology Consultation REQ : Claribel Singh RFC: Drop in platelets, requiring anticoag DOS 02/03/2020 ID 60-year-old male presenting for syncope. Unknown medical history. EMS was called to the house for vomiting. They had to break into his home and found him on the ground though he was awake. He has been complaining of vomiting unknown duration. Patient is lethargic does not provide much significant information. EMS rhythm strips on arrival showed sinus rhythm. While he was being transferred and put on monitor in the ED room he had a 40 beat episode of nonsustained ventricular tachycardia. He was awake during this time. EKG after this event showed atrial fibrillation with diffuse ST depressions. Has been seen b y cardiology and recs noted. PMH: Unknown PSH: Unknown Allergies: Unknown Social Hx: Unknown Allergies: Coded Allergies: No Known Allergies (Unverified , 02/02/20) COVID-19 Screening Contact w/high risk pt: No Recent Travel to affected area: No Experienced COVID-19 symptoms?: No COVID-19 symptoms experienced: Fever (T>100.4F or >38C) Review of Systems All Other Systems: negative except mentioned in HPI Physical Exam Vitals: noted HEENT: NC/AT. EOMI. Cardiovascular: Tachycardic, irregularly irregular rhythm Resp: Mild tachypnea. Normal work of breathing Abdomen: Abdomen is soft, nondistended. Nontender Skin: Intact. No abrasions, laceration or rash over the exposed skin MSK: Normal tone and bulk. Moving all extremities. No obvious deformity. Neuro: Lethargic. Responds to painful stimuli Labs: noted Imaging: noted Assessment and Recs: # Thrombocytopenia - potential causes multifactorial, evaluate liver and viral etiologies to begin, also could be related to underlying medications patient has received. May be related to viral infection v other cause --> Hep panel and HIV ordered --> US abd to evaluate for cirrhosis and hsm ordered --> Peripheral smear ordered to evaluate for blasts /schistocytes --> abx and other meds have been reviewed --> ok for ppx if plt >50k w/ either heparin or lovenox --> Transfuse if Plt < 20k and fever, or if Plt < 10k without fever # Hypercoag disorder with afib and known hx --> at some point will require anticoag --> as per cards, plts borderline # Syncope --> may be due to Ventricular tachycardia --> has a hx of afib in the past ==> neuro eval # Atrial fibrillation with rapid ventricular response. --> lopressor and anticoag when ready The timing of this note does not necessarily reflect the time of the patient was seen. Greatly appreciate consultation. Khoi Mills MD Feb 03, 2020 14:13
--- NOTE | 2020-02-03 16:00 | NUR ---
NURSE NOTES: Sinus rhythm to sinus ashlyn on cardiac cath technologist. Pt ordered dinner on the menu. Pt denies pain or discomfort. Will continue to monitor.
[2020-02-03] MEDS: D5 1/2NS w/KCl 40meq 1000ml 1,000 ML IV SCH (16:39)
--- NOTE | 2020-02-03 18:00 | Consultation ---
DATE OF CONSULTATION: 02/03/2020 ICU CONSULTATION CONSULTING PHYSICIAN: Seth Sims M.D. HISTORY OF PRESENT ILLNESS: This is a 60-year-old male with a history off cardiac arrhythmias. He has also had a cardiac ablation in the past. He came to the hospital with syncope. Patient was vomiting. He was found on the ground. He was lethargic. Patient had multiple runs of V-tach in the ER. He was seen and admitted to the ICU. Currently, he is awake and responsive. REVIEW OF SYSTEMS: Unreliable. PAST HISTORY: Cardiac arrhythmias as discussed above. HOME MEDICATIONS: Reviewed and reconciled in the chart. FAMILY HISTORY: None. SOCIAL HISTORY: Lives at home with no history of alcohol or tobacco use. PHYSICAL EXAMINATION: GENERAL: Reveals a 60-year-old male. HEENT: Unremarkable. LUNGS: Clear breath sounds bilaterally. ABDOMEN: Soft. NEUROLOGIC: Nonfocal. VITAL SIGNS: Blood pressure of 90/60, heart rate 58, respirations are 18, O2 saturation 100% on room air. X-ray chest was obtained, which shows bilaterally. LABORATORY DATA: Lab testing shows normal CBC and BMP. IMPRESSION: 1. Cardiac arrhythmias. 2. Mild azotemia. 3. Anemia. DISCUSSION: Admit to the ICU. Predominant care per Dr. Melendez, Cardiology. Amiodarone, potassium replacement. We will follow carefully. Discussed with RN at bedside. Seth Sims M.D. DR: DARYN JOB#: [id number] CC:
[2020-02-03] MEDS ORDERED: D5 1/2NS w/KCl 40meq 1000ml 1,000 ML IV SCH (18:47)
--- NOTE | 2020-02-03 18:50 | NUR ---
OBTAINED REPORT FROM DONNELL HORN. PT IS A TRANSFER FROM ICU. PT IS NSR AND VSS. PT ORIENTED TO UNIT AND STAFF. UPDATED ON PLAN OF CARE. EDUCATED ON FALL RISK PRECAUTIONS AND RISK FOR SKIN BREAKDOWN. VERBALIZED UNDERSTANDING. ALL NEEDS ANTICIPATED AND MET. CALL LIGHT WITHIN REACH. PT IN NO APPARENT DISTRESS.
--- NOTE | 2020-02-03 18:50 | NUR ---
PT VERBALIZES HE HAS ALL BELONGINGS IN PLACE AT TIME OR ARRIVAL OF TELE UNIT. HE HAS $563 IN KNOWLES (DECLINED SENDING KNOWLES TO NURSE OUTREACH CASE MANAGER/SECURITY).
--- NOTE | 2020-02-03 18:52 | NUR ---
TRANSFER TO FLOOR: Patient transferred to [facility]. Report given to DONNELL Escobedo. Belongings with patient in the room. Medications given to Fanny. Pt is alert and oriented x4.
--- NOTE | 2020-02-03 19:15 | NUR ---
NURSE NOTES: Received pt and report from DONNELL Brown. Observed pt resting in bed with both eyes open and on his cellphone. Pt is A/Ox4. backup administrative coordinator is in placed; pt is NSR. IV site intact, asymptomatic, and patent; running D5 1/2 NS w/KCL 40meq @50cc/hr. Bed is in the lowest position and locked. Call light and bedside table is within reach. No signs/symptoms of acute distress noted at this time. Will continue plan of care.
--- NOTE | 2020-02-03 19:20 | NUR ---
GAVE FULL REPORT TO OBSTETRICS AND GYNECOLOGY PROFESSOR RN (MY). PT RESTING IN BED IN NO APPARENT DISTRESS. MADE AWARE PER ICU NURSE (REPORT UPON TRANSFER TO [facility]), PLAN IS TO TRANSFER PT TO [facility] . PER ICU NURSE, MD KHAN SPOKE WITH TRANSFER CENTER AND HAD STAFF FAX ALL NECESSARY PAPERWORK. POSSIBLE DISCHARGE/TRANSFER TO [facility] IS PENDING. AWAITING RESPONSE FROM [facility].
--- NOTE | 2020-02-03 19:30 | NUR ---
OBTAINED CALL FROM STAFF FROM TRANSFER CENTER ([facility]) WHO REPORTS POSSIBLE BED OPEN TONIGHT, SHE WILL ATTEMPT TO SPEAK WITH MD KHAN AND CALL BACK TO UPDATE PRIMARY NURSE. INFORMED MANUFACTURING TECHNOLOGIST RN (MY).
--- NOTE | 2020-02-03 19:55 | NUR ---
NURSE NOTES: [facility] transportation personnel, Hailey, called regarding available room for transfer. Per Dr. Melendez, pt is transferring to [facility] for cardiac cath and EP study. Will contact Dr. Sweeney for discharge orders.
--- NOTE | 2020-02-03 20:02 | NUR ---
NURSE NOTES: Contacted Dr. Sweeney regarding available room for transfer to [facility]. Awaiting call back.
--- NOTE | 2020-02-03 20:42 | NUR ---
NURSE NOTES: Contacted Dr. Sweeney for the second time regarding available room at [facility]. Awaiting call back.
--- NOTE | 2020-02-03 21:34 | NUR ---
NURSE NOTES: Per Dr. Sweeney, pt may transfer to [facility] if clear by Dr. Melendez. Dr. Sweeney ordered to resume home meds (pt has no home meds) and discontinue hospital meds. Will note and carry out. Will contact Dr. Melendez.
--- NOTE | 2020-02-03 21:45 | NUR ---
NURSE NOTES: Per Dr. Melendez, pt is cleared by cardiac standpoint. Dr. Sweeney made aware. Will start discharge paperwork.
--- NOTE | 2020-02-03 22:18 | NUR ---
NURSE NOTES: Arranged ACLS transport for patient with [facility]. 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
--- NOTE | 2020-02-03 22:30 | NUR ---
NURSE NOTES: Dr. Melendez made aware that [facility] will be running late. New ETA is 12:30am. Dr. Melendez said, "Okay." Addendum: 02/03/20 at 1082 by Chiquis Landon Mai, RN INCORRECT TIME. Contacted Dr. Melendez at 0011.
--- NOTE | 2020-02-03 23:05 | NUR ---
NURSE NOTES: Gave report to DONNELL Carroll at [facility]. Pt will be assign to RM [id number].
--- NOTE | 2020-02-03 23:28 | NUR ---
NURSE NOTES: Followed up again with [facility] regarding transport status of patient. Was told that the crew is running late because they're with another patient. 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
[2020-02-04] VITALS: BP 119/59
--- NOTE | 2020-02-04 00:51 | NUR ---
NURSE NOTES: Followed up with [facility]. Per [facility] personnel, transportation is a mile away and should arrive in about 10 minutes.
--- NOTE | 2020-02-04 01:35 | NUR ---
NURSE NOTES: Pt discharged to [facility] with [facility]. Pt transferred to [facility] without any incident. Discharge education and instructions given to pt. Belongings list checked and signed by pt. Belongings left with pt. Report given to DONNELL Harmon. Discharge package given to [facility]. VS stable: Temp 97.7 F, BP 97/55, HR 62, RR 17, O2 sat 98%. Pt in stable condition.
--- NOTE | 2020-02-04 06:15 | History and Physical Report ---
DATE OF ADMISSION: 02/02/2020 HISTORY OF PRESENT ILLNESS: The patient comes in because of syncope, had non-SVT, brought to the emergency room, was lethargic, vomiting, have prolonged QT interval, paroxysmal atrial fibrillation, also admitted for hypokalemia, elevated lactic acidosis. Chest x-ray was obtained, was normal and was initially tachycardic. The patient was basically, hotline was called in to the house for vomiting, apparently had to break down his home because he was on the floor and could not get up. He was complaining of vomiting. The patient apparently had 40 beats of nonsustained ventricular tachycardia and that is why the patient was admitted. The patient is lethargic and could not obtain a good history from the patient at this point. PAST MEDICAL HISTORY: Unable to obtain. PAST SURGICAL HISTORY: None known. ALLERGIES: None known allergies. MEDICATIONS: None known. FAMILY HISTORY: Noncontributory. SOCIAL HISTORY: No history of alcohol or illicit drugs. REVIEW OF SYSTEMS: A poor historian and cannot obtain a good history and confused. HEENT: Denies headaches. Respiratory: Denies shortness of breath. Denies cough. Cardiovascular: Denies chest pain. Gastrointestinal: Reports of vomiting. Extremities: Denies pain. WORKERS COMPENSATION ATTORNEY: Denies changes in speech pattern. PHYSICAL EXAMINATION: VITAL SIGNS: Temperature is 98.6, pulse is 62, blood pressure 106/76. HEENT: PERRLA. NECK: Supple. No lymphadenopathy. CHEST: Clear to auscultation. CARDIOVASCULAR: Tachycardic. GASTROINTESTINAL: Soft. Positive bowel sounds. No organomegaly. Nontender. EXTREMITIES: No edema. Reflexes equal on both sides. WORKERS COMPENSATION ATTORNEY: Just confused. LABORATORY DATA: WBC of 9.8, hemoglobin 15.7, sodium 144, potassium 3.9. Liver functions are normal. ASSESSMENT/PLAN: The patient who has syncope, non-SVT, vomiting, prolonged QT, atrial fibrillation, hyperkalemia. I have consulted Dr. Guzman, Dr. Melendez, Dr. Bryson, Dr. Sims, and Dr. Ildefonso Herrera, and Dr. Pritchard for the syncope and the workup of the above-mentioned diagnoses and abnormalities as well as abnormal symptoms to help with the management. Claribel Sweeney M.D. DR: Althea JOB#: [id number] CC:
[2020-02-04] MEDS ORDERED: Docusate 100mg cap ORAL SCH (09:00)
--- NOTE | 2020-02-05 09:54 | NUR ---
*-* INSURANCE *-* NO DISCHARGE SUMMARY IN THE SYSTEM UNABLE TO SEND TO [facility].
--- NOTE | 2020-02-06 16:35 | Discharge Summary ---
Discharge Summary Discharge Summary _ DATE OF ADMISSION: 02/02/2020 DATE OF DISCHARGE: 02/04/2020 DISCHARGED BY: Dr. Sweeney REASON FOR ADMISSION: 60 years old male with initially unknown past medical history , presented for syncopal episode. Paramedics were called for vomiting. They had to break into the house . Patient was found on the ground , but was awake . he complained of vomiting of unknown duration. Patient was lethargic and unable to provide much of the information. Patient was afebrile . Patient had episode of long run og nonsustained ventricular tachycardia in ED. EKG afterwards showed atrial fibrillation with diffuse ST depression. Laboratory work-up revealed no leukocytosis, stable hemoglobin and hematocrit. Lactic acid 4.9. Potassium 3.0. Anion gap 18. BUN 20, creatinine 1.1. Glucose 172. Troponin was negative. Pro BNP 92. EKG revealed atrial fibrillation with rapid ventricular response with diffuse ST depression. Chest x-ray demonstrated no acute cardiopulmonary pathology. Urinalysis revealed +2 protein , +3 ketones , but was r unremarkable for urinary tract infection. Patient subsequently for further management. CONSULTANTS: mechanical maintenance supervisor Dr. Rivera pulmonary Dr. Sims back end architect Dr. Bryson cattle trader/oncologist Dr. Mills [facility] COURSE: Patient admitted to intensive care unit initially. Wood Machinist Apprentice followed. Patient started on beta-dora . When patient was more awake, he reported history of atrial fibrillation, status post ablation at [facility] by Dr. Ling . Serial troponin were negative. Patient converted to sinus rhythm. ECG revealed no acute ischemic changes. Patient was ruled out for acute IL. Echocardiogram demonstrated preserved ejection fraction of 60% with no evidence of left ventricular hypertrophy. No evidence of wall motion abnormality. Right ventricular systolic pressure of 35 consistent with a mild pulmonary hypertension. Venous duplex bilateral lower extremity revealed no evidence of acute DVT. Wood Machinist Apprentice recommended cardiac catheterization and EP study for further evaluation of his coronaries and inducibility of VT. Per mechanical maintenance supervisor, syncope was likely due to ventricular tachycardia. Urine toxicology screen was negative. Patient was on IV fluids. Electrolytes/potassium replaced. Pulse oximetry remained stable on room air. Bed was secured at [facility]. Patient subsequently was transferred for further workup and management. FINAL DIAGNOSES: Atrial fibrillation with rapid ventricular response Long runs of nonsustained ventricular tachycardia at 40 beats Status post syncope ,likely due to ventricular tachycardia Electrolyte imbalance Dehydration DISCHARGE MEDICATIONS: List of medication was sent to accepting facility DISCHARGE INSTRUCTIONS: Patient was transferred to [facility] via [facility] for further management. I have been assigned to dictate discharge summary for this account. I was not involved in the patient's management. Leticia Cabrera NP Feb 06, 2020 16:35
--- NOTE | 2020-02-08 15:23 | NUR ---
*-* INSURANCE *-* DSICHARGE SUMMARY HAS BEEN FAXED TO: DARRON FRANZ REF# [id number] P: [phone] OPT.6 F: [phone]
== END 2020-02-04 01:30 | disposition short-term general hospital (02) | DRG 310 ==
LOC: EDBD 11:44 → EMR 12:30 → ICU 12:32 → EDBEDREQ 16:22 → 2E 02-03 18:47
DX: I47.2 Ventricular tachycardia (principal); I48.0 Paroxysmal atrial fibrillation; R94.31 Abnormal electrocardiogram [ECG] [EKG]; E86.0 Dehydration; D69.6 Thrombocytopenia, unspecified; D64.9 Anemia, unspecified; E87.6 Hypokalemia; I27.20 Pulmonary hypertension, unspecified
CPT/HCPCS: 36415; 71045; 74018; 80053; 80061; 80162; 80307; 81003; 82550; 83036; 83605; 83690; 83735; 83880; 84100; 84439; 84443; 84484; 84550; 85007; 85025; 85379; 85610; 85730; 86140; 86703; 86705; 86709; 86803; 87040; 87081; 87340; 93005; 93306; 93970; 96361; 96365; 96366; 99291; G0480; J7030